=== PATIENT | male | born 1965 | race Caucasian/White ===

== ENCOUNTER → 2018-03-06 | Outpatient (CLI) | payer BC ==
--- NOTE | 2018-03-06 12:04 | RAD ---
EXAM: Lumbar spine, 5 views. HISTORY: Pain. COMPARISON: None. FINDINGS: 5 views of the lumbar spine are obtained. There is no significant listhesis. There is chronic mild anterior wedging of the T11, T12 and L1 vertebral bodies, likely degenerative in etiology. There is degenerative endplate remodeling with anterior spurring at multiple levels. There is facet arthropathy predominantly at the lumbosacral junction. IMPRESSION: 1. Multilevel degenerative change throughout the thoracic and lumbar spine. 2. No acute osseous finding. Electronically signed by: Brittany Mcclelland MD (03/06/2018 11:59 AM) [facility]
== END | disposition home or self-care (01) ==
LOC: PMG 11:10
PROVIDERS: ATTEND Physician Assistant Medical
DX: M47.895 Other spondylosis, thoracolumbar region (principal); M12.88 Other specific arthropathies, not elsewhere classified, other specified site
CPT/HCPCS: 72110

== ENCOUNTER → 2019-07-23 | Outpatient (CLI) | payer BC ==
--- NOTE | 2019-07-23 09:46 | RAD ---
Examination: TIBIA FIBULA LEFT History: Fell 2 weeks. Bruising and swelling onset 2 days ago. Comparison/Correlation: None Findings: Joint spaces are normal. No fracture or bone destruction. Soft tissues are unremarkable. Bone island is suggested at the distal tibial diametaphyseal region but is small in size. No radiopaque foreign body. Impression: No suspicious process. Electronically signed by: Adam Hawkins MD (07/23/2019 9:42 AM) [id number]
== END ==
LOC: PMG 08:58
PROVIDERS: ATTEND Physician Assistant Medical
DX: M79.605 Pain in left leg (principal)
CPT/HCPCS: 73590